=== PATIENT | female | born 1990 | race American Indian/Alaskan Native ===

== ENCOUNTER 2021-02-28 14:44 | Day surgery (SDC) | payer MEDICAID ==
--- NOTE | 2021-02-28 15:37 | Emergency Department Report ---
HPI - General Chief Complaint: Vaginal Bleeding Time Seen by Provider: 02/28/21 15:19 - HPI HPI: This is a 31-year-old -Turk[place] female presents to the emergency department, sent in from the office of her BANK GUARD Dr. Boykin, to have a D&C or some type of surgery secondary to products of retained conception. The patient was at G2, P1. She began having vaginal bleeding and pelvic cramping and says that she has been bleeding since February 19. It sounds like the patient had either a partial miscarriage or demise in the attempted evacuation of the fetus. Patient says that she was given "pills" but that it did not work. She had an ultrasound done through outpatient imaging at [facility] on Sunday, 3 days ago, that showed products of retained conception. Patient continues to have moderate vaginal bleeding and pelvic cramping. She denies any fever, chest pain, shortness of breath, lower extremity swelling. No other past medical history. ED Past Medical Hx - Past Medical History Previous Medical History?: No - Surgical History Past Surgical History?: Yes Additional Surgical History: - Social History Smoking Status: Never Smoker ED Review of Systems ROS: Stated complaint: POSS D&C/VAG BLEEDING/CRAMPING Other details as noted in HPI Comment: All other systems reviewed and negative Constitutional: denies: chills, fever Eyes: denies: eye pain, vision change ENT: denies: ear pain, throat pain Respiratory: denies: cough, shortness of breath Cardiovascular: denies: chest pain, palpitations Gastrointestinal: denies: abdominal pain, vomiting Genitourinary: other (Pelvic cramping, vaginal bleeding). denies: discharge Musculoskeletal: denies: back pain, arthralgia Skin: denies: rash, lesions Neurological: denies: headache, weakness Physical Exam - Physical Exam Vital Signs: Vital Signs 02/28/21 02/28/21 15:14 15:28 Temperature 99.0 F Pulse Rate 95 H Respiratory 18 Rate Blood Pressure 115/80 O2 Sat by Pulse 98 99 Oximetry Physical Exam: GENERAL: The patient is well-developed well-nourished. HENT: Normocephalic. Atraumatic. Patient has moist mucous membranes. EYES: Extraocular motions are intact. NECK: Supple. Trachea is midline. CHEST/LUNGS: Clear to auscultation. There is no respiratory distress noted. HEART/CARDIOVASCULAR: Regular. There is no tachycardia. There is no murmur. ABDOMEN: Abdomen is soft, nontender. Patient has normal bowel sounds. There is no abdominal distention. SKIN: Skin is warm and dry. NEURO: The patient is awake, alert, and oriented. The patient is cooperative. Normal speech. MUSCULOSKELETAL: There is no tenderness or deformity. There is no limitation range of motion. ED Course Vital Signs 02/28/21 02/28/21 15:14 15:28 Temperature 99.0 F Pulse Rate 95 H Respiratory 18 Rate Blood Pressure 115/80 O2 Sat by Pulse 98 99 Oximetry ED Medical Decision Making - Lab Data Result diagrams: 02/28/21 15:33 02/28/21 15:33 Lab Results 02/28/21 02/28/21 02/28/21 Range/Units 15:33 15:33 15:33 WBC 7.5 (4.5-11.0) K/mm3 RBC 3.93 (3.65-5.03) M/mm3 Hgb 11.5 (10.1-14.3) gm/dl Hct 33.9 (30.3-42.9) % MCV 86 (79-97) fl MCH 29 (28-32) pg MCHC 34 (30-34) % RDW 13.2 (13.2-15.2) % Plt Count 294 (140-440) K/mm3 Lymph % (Auto) 17.4 (13.4-35.0) % [place] % (Auto) 7.7 H (0.0-7.3) % Eos % (Auto) 0.1 (0.0-4.3) % Baso % (Auto) 0.2 (0.0-1.8) % Lymph # (Auto) 1.3 (1.2-5.4) K/mm3 [place] # (Auto) 0.6 (0.0-0.8) K/mm3 Eos # (Auto) 0.0 (0.0-0.4) K/mm3 Baso # (Auto) 0.0 (0.0-0.1) K/mm3 Seg Neutrophils % 74.6 H (40.0-70.0) % Seg Neutrophils # 5.6 (1.8-7.7) K/mm3 PT 14.5 (12.2-14.9) Sec. INR 1.07 (0.87-1.13) APTT 34.9 (24.2-36.6) Sec. Sodium 140 (137-145) mmol/L Potassium 4.1 (3.6-5.0) mmol/L Chloride 107.6 H (98-107) mmol/L Carbon Dioxide 21 L (22-30) mmol/L Anion Gap 16 mmol/L BUN 9 (7-17) mg/dL Creatinine 0.7 (0.6-1.2) mg/dL Estimated GFR > 60 ml/min BUN/Creatinine Ratio 13 % Glucose 82 (65-100) mg/dL Calcium 8.6 (8.4-10.2) mg/dL Total Bilirubin 0.40 (0.1-1.2) mg/dL AST 16 (5-40) units/L ALT 15 (7-56) units/L Alkaline Phosphatase 78 (35-129) units/L Total Protein 7.4 (6.3-8.2) g/dL Albumin 4.1 (3.9-5) g/dL Albumin/Globulin Ratio 1.2 % HCG, Quant (0-4) mIU/mL 02/28/ Range/Units 15:33 WBC (4.5-11.0) K/mm3 RBC (3.65-5.03) M/mm3 Hgb (10.1-14.3) gm/dl Hct (30.3-42.9) % MCV (79-97) fl MCH (28-32) pg MCHC (30-34) % RDW (13.2-15.2) % Plt Count (140-440) K/mm3 Lymph % (Auto) (13.4-35.0) % [place] % (Auto) (0.0-7.3) % Eos % (Auto) (0.0-4.3) % Baso % (Auto) (0.0-1.8) % Lymph # (Auto) (1.2-5.4) K/mm3 [place] # (Auto) (0.0-0.8) K/mm3 Eos # (Auto) (0.0-0.4) K/mm3 Baso # (Auto) (0.0-0.1) K/mm3 Seg Neutrophils % (40.0-70.0) % Seg Neutrophils # (1.8-7.7) K/mm3 PT (12.2-14.9) Sec. INR (0.87-1.13) APTT (24.2-36.6) Sec. Sodium (137-145) mmol/L Potassium (3.6-5.0) mmol/L Chloride (98-107) mmol/L Carbon Dioxide (22-30) mmol/L Anion Gap mmol/L BUN (7-17) mg/dL Creatinine (0.6-1.2) mg/dL Estimated GFR ml/min BUN/Creatinine Ratio % Glucose (65-100) mg/dL Calcium (8.4-10.2) mg/dL Total Bilirubin (0.1-1.2) mg/dL AST (5-40) units/L ALT (7-56) units/L Alkaline Phosphatase (35-129) units/L Total Protein (6.3-8.2) g/dL Albumin (3.9-5) g/dL Albumin/Globulin Ratio % HCG, Quant 78.96 H (0-4) mIU/mL - Medical Decision Making This patient was sent in from the office of her BANK GUARD, Dr. Boykin, to have some preop blood work done and then go to the OR for a D&C secondary to retained products of conception. Initially the patient was on Cytotec, but continued to have pelvic cramping and moderate to large vaginal bleeding. She recently went to [facility], about 4 days ago, where she supposedly had an ultrasound that showed retained products of conception. Patient's blood work today is mostly unremarkable including CBC, metabolic panel, coags, and her beta hCG quant is do wn to 78. I spoke with Dr. Boykin, and she will proceed with the D&C as the patient continues to complain of at least moderate vaginal bleeding. An obs admission has been placed under Dr. Boykin, but I suspect the patient will be discharged from the PACU assuming there are no operative complications. Critical Care Time: No Critical care attestation.: If time is entered above; I have spent that time in minutes in the direct care of this critically ill patient, excluding procedure time. ED Disposition Clinical Impression: Retained products of conception, Dysfunctional uterine bleeding, Incomplete miscarriage Disposition: OP ADMIT IP TO THIS HOSP Is pt being admited?: Yes Condition: Stable Time of Disposition: 18:37
[2021-02-28 16:23] LABS: Alanine Aminotransferase 15 units/L (7-56); Albumin 4.1 g/dL (3.9-5); Blood Urea Nitrogen 9 mg/dL (7-17); Calcium 8.6 mg/dL (8.4-10.2); Hemolysis Index 1
[2021-02-28 16:28] LABS: Basophils % (Auto) 0.2 % (0.0-1.8); Eosinophils % (Auto) 0.1 % (0.0-4.3); Hematocrit 33.9 % (30.3-42.9); Hemoglobin 11.5 gm/dl (10.1-14.3); Lymphocytes # (Auto) 1.3 K/mm3 (1.2-5.4); Lymphocytes % (Auto) 17.4 % (13.4-35.0); Mean Corpuscular HGB Conc 34 % (30-34); Mean Corpuscular Volume 86 fl (79-97); Monocytes # (Auto) 0.6 K/mm3 (0.0-0.8); Monocytes % (Auto) 7.7 % (0.0-7.3); Platelet Count 294 K/mm3 (140-440); Red Blood Count 3.93 M/mm3 (3.65-5.03); Red Cell Distribution Width 13.2 % (13.2-15.2)
[2021-02-28 16:34] LABS: BUN/Creatinine Ratio 13
[2021-02-28 16:38] LABS: INR 1.07 (0.87-1.13)
[2021-02-28 16:39] LABS: Partial Thromboplastin Time 34.9 Sec. (24.2-36.6)
[2021-02-28] MEDS ORDERED: ONDANSETRON 4 MG/2 ML INJ IV PRN (19:46)
[2021-02-28] MEDS ORDERED: HYDROmorphone 1 MG/1 ML INJ IV PRN ×2 (19:46)
--- NOTE | 2021-02-28 20:27 | Anesthesia Day of Surgery ---
Anesthesia Day of Surgery - Day of Surgery Patient Examined: Yes Patient H&P Reviewed: Yes Patient is NPO: Yes
[2021-02-28] MEDS ORDERED: propofoL 200 MG/20 ML VIAL IV ONE (20:28)
--- NOTE | 2021-02-28 20:28 | Anesthesia Consultation ---
Anesthesia Consult and Med Hx Date of service: 02/28/21 - Airway Anesthetic Teeth Evaluation: Good (Braces) ROM Head & Neck: Adequate Mental/Hyoid Distance: Adequate Mallampati Class: Class II Intubation Access Assessment: Good - Pre-Operative Health Status ASA Pre-Surgery Classification: ASA1, Emergency Proposed Anesthetic Plan: General - Pulmonary Hx Smoking: No - Hematic Hx Anemia: No Hx Sickle Cell Disease: No
[2021-02-28] MEDS ORDERED: MIDAZOLAM 2 MG/2 ML INJ ONE (20:29)
[2021-02-28] MEDS ORDERED: fentaNYL 100 MCG/2 ML INJ ONE (20:30)
--- NOTE | 2021-02-28 20:42 | History and Physical Report ---
History of Present Illness Date of examination: 02/28/21 Chief complaint: vag bleed with incomplete , medical mgt History of present illness: with incomplete and pt still bleeding inspite of decreasing B- HCG and pt having more pelvic pain Past History Past Medical History: no pertinent history Past Surgical History: section (x1) Family/Genetic History: none Social history: no significant social history - Obstetrical History Hx # Term Pregnancies: 1 Spontaneous Abortions: 1 (incomplete hence surgery today) Number of Living Children: 1 Medications and Allergies Allergies Allergy/AdvReac Type Severity Reaction Status Date / Time No Known Allergies Allergy Unverified 02/28/21 15:13 Home Medications Medication Instructions Recorded Confirmed Last Taken Type Doxycycline Monohydrate 100 mg PO BID 7 Days #14 tablet 02/28/21 Unknown Rx Ibuprofen [Motrin] 800 mg PO Q8HR PRN 21 Days #40 02/28/21 Unknown Rx tablet oxyCODONE /ACETAMINOPHEN [Percocet 1 tab PO Q4HR PRN #20 tab 02/28/21 Unknown Rx 5/325] Active Meds: Active Medications Hydromorphone HCl (Hydromorphone 1 Mg/1 Ml Inj) 0.5 mg IV Q10MIN PRN PRN Reason: Pain , Severe (7-10) Stop: 03/01/21 19:45 Hydromorphone HCl (Hydromorphone 1 Mg/1 Ml Inj) 0.25 mg IV Q10MIN PRN PRN Reason: Pain, Moderate (4-6) Stop: 03/01/21 19:45 Ondansetron HCl (Ondansetron 4 Mg/2 Ml Inj) 4 mg IV ONCE PRN PRN Reason: Nausea And Vomiting Review of Systems All systems: negative (pelvic pain and vaginal bleeding) - Vital Signs Vital signs: Vital Signs Temp Pulse Resp BP Pulse Ox 99.0 F 95 H 18 115/80 98 02/28/21 15:14 02/28/21 15:14 02/28/21 15:14 02/28/21 15:14 02/28/21 15:14 Temp Pulse Resp BP Pulse Ox 99.0 F 95 H 18 115/80 99 02/28/21 15:14 02/28/21 15:14 02/28/21 15:14 02/28/21 15:14 07/26/21 15:28 - Physical Exam Breasts: Positive: deferred Lungs: Positive: Normal air movement Abdomen: Positive: normal appearance Genitourinary (Female): Positive: normal external genitalia Vulva: both: normal Vagina: Positive: normal moisture Uterus: Positive: normal size Extremities: Positive: normal Results Result Diagrams: 02/28/21 15:33 02/28/21 15:33 Abnormal lab results 02/28/21 02/28/21 02/28/21 Range/Units 15:33 15:33 15:33 [place] % (Auto) 7.7 H (0.0-7.3) % Seg Neutrophils % 74.6 H (40.0-70.0) % Chloride 107.6 H (98-107) mmol/L Carbon Dioxide 21 L (22-30) mmol/L HCG, Quant 78.96 H (0-4) mIU/mL All other labs normal. Assessment and Plan Incomplete miscarriage, failed medical management with pt having vaginal bleeding and pelvic pain with decreasing B-HCG 1. Admit to same day procedure, suction dilatation and curettage 2. check cbc, type and screen 3. Notified OR after pt came thru the ER 4. Plan of care already discussed and pt to be discharged home after the procedure All questions encouraged and answered
[2021-02-28] MEDS ORDERED: dexAMETHasone 20 MG/5 ML VIAL ONE (20:44)
[2021-02-28] MEDS ORDERED: KETOROLAC 30 MG/1 ML INJ ONE (20:44)
[2021-02-28] MEDS ORDERED: ONDANSETRON 4 MG/2 ML INJ ONE (20:44)
[2021-02-28] MEDS ORDERED: SODIUM CHLORIDE 0.9% IRR 1,500 ML BOTTLE IR ONE (20:56)
[2021-02-28] MEDS ORDERED: miSOPROStol 200 MCG TAB ONE (21:03)
[2021-02-28] MEDS ORDERED: miSOPROStol 200 MCG TAB PR ONE (21:20)
--- NOTE | 2021-02-28 21:36 | Procedure Note ---
Date of procedure: 02/28/21 Pre-op diagnosis: Incomplete miscarriage, failed medical management Post-op diagnosis: same Procedure: After the risks, benefits and alternatives were discussed and consents signed, pt was taken to the operating room via stretcher. Pt was given general anesthesia while supine and then placed in dorsal lithotomy position after anesthesia was adequate; also time out was done. Pt was prepped and draped in the usual sterile fashion and given preop antibiotics ancef and pt also given doxycycline when med arrived to the operating room. Red rubber straight cath done without difficulty with scant amount of clear urine approx 25cc. Bimanual exam with normal size uterus, cervix with moderate dark red blood at os which was able to accomodate hegar dilator 12mm without difficulty Single tooth tenaculum placed on the anterior lip of the cervix. uterine sound 8cm and suction curette gently advanced to the fundus and products of conception minimal removed in a clockwise rotation using the suction device. Same removed and then sharp curette done to all 4 quadrants of the uterine cavity. Anteriorly friable tissue removed, moderate amount. The suction device placed 2 more time to the fundus and all remaining productions of conception removed using rotational manner using the suction device. Pt receiving doxycycline med. The products of conception sent to pathology all instruments removed and tenaculum site without bleeding. Sponge, lap and instrument counts correct x2 Cytotec 800mcg placed per rectum Pt extubated and stable, then taken to recovery room Findings: Dilated cervix 1-2cm with small amount of dark red blood. Bimanual exam with normal adnexa and normal size uterus Implants: none Anesthesia: LEEANN Surgeon: KENNETH JOHN Estimated blood loss: 50-100ml (100cc) Pathology: list (products of conception) Specimen disposition: to lab Condition: stable Disposition: PACU
--- NOTE | 2021-02-28 23:06 | Discharge Summary ---
Providers - Providers Date of discharge: 02/28/21 Attending physician: SILVIO CRUZ Primary care physician: [employer] Hospitalization Reason for admission: Suction dilatation and curettage procedure for incomplete miscarriage Condition: Good Procedures: Suction dilatation and curettage Hospital course: Pt was sent to ER with complaint of vaginal bleeding, failed medical management for her incomplete miscarriage. pt had uncompleted surgical suction dilatation and curettage and discharged home the same day of procedure when stable in the P ACU Disposition: DC-01 TO HOME OR SELFCARE Final Discharge Diagnosis (Prints w/discharge instructions): Incomplete miscarriage Core Measure Documentation - Palliative Care Palliative Care/ Comfort Measures: Not Applicable - Core Measures Any of the following diagnoses?: none Exam - Constitutional Vitals: Temp Pulse Resp BP Pulse Ox 99.0 F 95 H 18 115/80 99 02/28/21 15:14 02/28/21 15:14 02/28/21 15:14 02/28/21 15:14 02/28/21 15:28 General appearance: Present: no acute distress - Respiratory Respiratory effort: normal - Cardiovascular Rhythm: regular - Extremities Extremities: No edema - Abdominal General gastrointestinal: Present: soft, non-tender Female genitourinary: Absent: other (scant vag bleed on perineal pad) - Psychiatric Psychiatric: cooperative - Neurologic Neurologic: moves all extremities Plan Activity: advance as tolerated Diet: regular Additional Instructions: NO sex x4wks, nothing in the vagina, no tampons, no tub baths. Call the office if temp>100.5, heavy vaginal bleeding or severe pelvic pain. Take all your antibiotic meds as prescribed Follow up with: KENNETH JOHN MD [Staff Physician] - 7 Days Forms: Outpatient Surgery DC Inst. Prescriptions: Doxycycline Monohydrate 100 mg PO BID 7 Days #14 tablet Ibuprofen [Motrin] 800 mg PO Q8HR PRN 21 Days #40 tablet PRN Reason: Pain, Mild (1-3) oxyCODONE /ACETAMINOPHEN [Percocet 5/325] 1 tab PO Q4HR PRN #20 tab PRN Reason: Pain, Moderate (4-6)
[2021-02-28 23:39] VITALS: BP 117/69
== END 2021-02-28 18:38 | disposition home or self-care (01) ==
LOC: ED 14:44 → LDOR 18:37
PROVIDERS: ATTEND Emergency Medicine
DX: O03.4 Incomplete spontaneous abortion without complication (principal); N93.8 Other specified abnormal uterine and vaginal bleeding; Z79.899 Other long term (current) drug therapy; Z98.891 History of uterine scar from previous surgery
CPT/HCPCS: 36415; 59812; 80053; 84702; 85025; 85610; 85730; 86850; 86900; 86901; 88305; 99285; J1100; J1885; J2250; J2405; J2704; J3010